=== PATIENT | female | born 1930 | race Caucasian/White ===

== ENCOUNTER → 2016-05-26 | Outpatient (CLI) | payer MEDICARE, BC ==
--- NOTE | 2016-05-26 15:14 | US ---
EXAMINATION TYPE: US kidneys/renal and bladder DATE OF EXAM: 05/26/2016 2:40 PM COMPARISON: NONE CLINICAL HISTORY: N17.9 Acute Kidney Failure.No symptoms. EXAM MEASUREMENTS: Right Kidney: 10.1 x 4.3 x 4.3cm Left Kidney: 11.9 x 4.5 x 5.7cm TECHNOLOGIST IMPRESSION: Right Kidney: 8.9cm exophytic cyst seen Left Kidney: wnl Bladder: wnl Bilateral Jets seen: left only There is no evidence for hydronephrosis at this point in time. No nephrolithiasis is seen. No brie s are identified. The urinary bladder is anechoic. IMPRESSION: 1. Normal renal ultrasound
== END | disposition home or self-care (01) ==
LOC: RADUSWWP 14:25
PROVIDERS: ATTEND Family Medicine
DX: N17.9 Acute kidney failure, unspecified (principal)
CPT/HCPCS: 76770